=== PATIENT | female | born 1985 | race Caucasian/White ===

== ENCOUNTER 2018-01-22 10:07 | Outpatient (CLI) | payer OTHER | END 2018-01-22 10:27 | disposition home or self-care (01) | LOC: RX STUDY 10:07 | DX: N70.11 Chronic salpingitis (principal) ==

== ENCOUNTER 2022-04-08 09:56 | Outpatient (CLI) | payer OTHER | END 2022-04-08 10:09 | disposition home or self-care (01) | LOC: NST 09:56 | PROVIDERS: ATTEND Obstetrics & Gynecology Maternal & Fetal Medicine | DX: Z34.83 Encounter for supervision of other normal pregnancy, third trimester (principal) ==

== ENCOUNTER 2022-04-10 13:02 | Inpatient (IN) | payer OTHER ==
[~2022-04-10] VITALS: Ht 149.9 cm; Wt 3.2 kg
[2022-04-12] MEDS ORDERED: INTEGRA CAPSUL1 EACH (02:43)
[2022-04-12] MEDS ORDERED: FOLIC ACID20 MG (02:44)
[2022-04-12] MEDS ORDERED: PRENATAL TABLE1 EAC3 (02:44)
[2022-04-12] MEDS ORDERED: CHILDREN'S ASPI81 MG (02:44)
[2022-04-15] MEDS ORDERED: KETO10TA2 PO (07:54)
[2022-04-15] MEDS ORDERED: OXYC1TAB9 PO (07:54)
== END 2022-04-15 13:41 | disposition home or self-care (01) | DRG 788 ==
LOC: OB/GYN 13:02 → LDR 04-12 00:59 → OB/GYN 04-12 14:37
PROVIDERS: Obstetrics & Gynecology; ADMIT Obstetrics & Gynecology Maternal & Fetal Medicine; ATTEND Obstetrics & Gynecology Maternal & Fetal Medicine
PROC: 4A1HXCZ Monitoring of Products of Conception, Cardiac Rate, External Approach (ICD-10-PCS; 2022-04-12)
PROC: 10D00Z1 Extraction of Products of Conception, Low, Open Approach (ICD-10-PCS; principal; 2022-04-12 13:30)
DX: O82 Encounter for cesarean delivery without indication (principal); Z3A.40 40 weeks gestation of pregnancy; Z37.0 Single live birth; Z20.822 Contact with and (suspected) exposure to COVID-19